=== PATIENT | male | born 1950 | race Caucasian/White ===

== ENCOUNTER 2021-01-24 06:47 | Day surgery (SDC) | payer OTHER ==
[~2021-01-24] VITALS: Ht 188 cm; Wt 111.2 kg
[~2021-01-24 06:47] MED LIST: ASPI81CH PO; ATOR10 PO; IBUP200 PO; NEBI5 PO; NIAC500ER PO; RXHYDACE PO; VITAMIN D50000 UNIT PO; Vitamin C100 M1
[2021-01-24] MEDS ORDERED: VITAMIN D31000 UNI1 (07:17)
--- NOTE | 2021-01-24 07:52 | NUR ---
01/24/21 0752 Arianna Hoffman PT TOOK SUTAB PREP FOR PROCEDURE.
== END 2021-01-24 09:00 | disposition home or self-care (01) ==
LOC: ORSCSDS 06:47
PROVIDERS: Internal Medicine Gastroenterology
PROC: 0DJD8ZZ Inspection of Lower Intestinal Tract, Via Natural or Artificial Opening Endoscopic (ICD-10-PCS; principal; 2021-01-24 08:00)
DX: Z12.11 Encounter for screening for malignant neoplasm of colon (principal); Z86.010 Personal history of colon polyps; K57.30 Diverticulosis of large intestine without perforation or abscess without bleeding; K64.4 Residual hemorrhoidal skin tags; I10 Essential (primary) hypertension; E78.5 Hyperlipidemia, unspecified; Z79.899 Other long term (current) drug therapy
CPT/HCPCS: J0330; J0461; J2405; J2704; J7120

== ENCOUNTER 2024-03-29 10:05 | Day surgery (SDC) | payer OTHER ==
[~2024-03-29] VITALS: Ht 190.5 cm; Wt 105.3 kg
[~2024-03-29 10:05] MED LIST changes: +Lactated Ringer's 1,000 ML IV ONE; +VITAMIN D31000 UNI1; +propofoL 50 ML IV ONE
[2024-03-29] MEDS ORDERED: TADA10TA (10:35)
[2024-03-29] MEDS ORDERED: ATOR10 (10:35)
[2024-03-29] MEDS ORDERED: Lactated Ringer's 1,000 ML IV ONE ×2 (10:35)
--- NOTE | 2024-03-29 11:42 | NUR ---
03/29/24 1142 Magdalena Haddad PT. DENIES ANY PAIN.
[2024-03-29 13:35] VITALS: BP 111/79
== END 2024-03-29 13:20 | disposition home or self-care (01) ==
LOC: ORSCSDS 10:05
PROVIDERS: Internal Medicine Gastroenterology
PROC: 0DBK8ZX Excision of Ascending Colon, Via Natural or Artificial Opening Endoscopic, Diagnostic (ICD-10-PCS; principal; 2024-03-29 11:15)
DX: Z12.11 Encounter for screening for malignant neoplasm of colon (principal); Z86.010 Personal history of colon polyps; D12.2 Benign neoplasm of ascending colon; K57.30 Diverticulosis of large intestine without perforation or abscess without bleeding; K64.4 Residual hemorrhoidal skin tags; E78.5 Hyperlipidemia, unspecified; I10 Essential (primary) hypertension; E55.9 Vitamin D deficiency, unspecified; Z79.899 Other long term (current) drug therapy
CPT/HCPCS: 88305; J2704; J7120

== ENCOUNTER 2025-07-22 07:36 | Observation (INO) | payer OTHER ==
[~2025-07-22] VITALS: Ht 190.5 cm; Wt 104.3 kg
[~2025-07-22 07:36] MED LIST changes: -Lactated Ringer's 1,000 ML IV ONE; +TADA10TA PO; -propofoL 50 ML IV ONE
[2025-07-22 08:23] LABS: BASOPHILS ABSOLUTE AUTO 0.05 K/mm3 (0.00-0.23); BASOPHILS PERCENT AUTO 1 % (0-2); EOSINOPHILS ABSOLUTE AUTO 0.21 K/mm3 (0.00-0.68); EOSINOPHILS PERCENT AUTO 4 % (0-6); Hematocrit 42.2 % (37.0-53.0); Hemoglobin 14.8 g/dL (13.5-17.5); IMMATURE GRAN ABSOLUTE AUTO 0.01 K/mm3 (0.00-0.10); IMMATURE GRAN PERCENT AUTO 0 % (0-1); LYMPHOCYTES ABSOLUTE AUTO 1.11 K/mm3 (0.84-5.20); LYMPHOCYTES PERCENT AUTO 22 % (21-46); MONOCYTES ABSOLUTE AUTO 0.49 K/mm3 (0.16-1.47); MONOCYTES PERCENT AUTO 10 % (4-13); Mean Corpuscular HGB Conc 35.1 g/dL (31.5-36.5); Mean Corpuscular Volume 91 fL (80-100); NEUTROPHILS ABSOLUTE AUTO 3.13 K/mm3 (1.96-9.15); NEUTROPHILS PERCENT AUTO 63 % (41-73); NRBC ABSOLUTE 0.00 K/mm3 (0.00-0.02); NRBC Auto 0.0 /100 WBC (0.0-0.2); Platelet Count 190 K/mm3 (150-400); RDW Coefficient Variation 11.9 % (11.7-14.2); RDW Standard Deviation 39.2 fL (35.1-46.3)
[2025-07-22 08:39] LABS: Alanine Aminotransfer (ALT/SGP 27.0 U/L (12-78); Albumin, Blood 3.5 g/dL (3.4-5.0); Albumin/Globulin Ratio 1.3 (0.8-1.8); Anion Gap 9.0 mmol/L (3-11); Aspartate Aminotrans (AST/SGOT 18.0 U/L (12-37); Bilirubin, Total 1.8 mg/dL (0.1-1.0); Blood Urea Nitrogen 20.0 mg/dL (8-24); CO2, Blood 25.0 mmol/L (21-32); Calcium, Blood 8.4 mg/dL (8.5-10.1); Chloride, Blood 109.0 mmol/L (98-108); Creatinine, Blood 1.11 mg/dL (0.60-1.20); Globulin, Blood 2.6 g/dL (2.2-4.0); Glucose, Blood 192.0 mg/dL (70-99); Magnesium, Blood 2.1 mg/dL (1.6-2.4); Potassium, Blood 4.2 mmol/L (3.5-5.5); Sodium, Blood 139.0 mmol/L (136-145); Total Protein, Blood 6.1 g/dL (6.4-8.2)
[2025-07-22] MEDS ORDERED: NS 1,000 ML IV SCH ×2 (09:15→11:30)
[2025-07-22] MEDS ORDERED: FLU VACC TS2025(65UP)/MF59C/PF 45 MCG/0.5 ML SYRINGE IM SCH (12:45)
[2025-07-22] MEDS ORDERED: ERGO50000 PO (14:18)
[2025-07-22] MEDS ORDERED: IBUP600 PO (14:19)
[2025-07-22] MEDS ORDERED: L-LYSINE500 MG PO (14:21)
[2025-07-22 15:06] VITALS: BP 155/108
--- NOTE | 2025-07-22 18:20 | NUR ---
PT ARRIVED IN THE ROOM 1415 FOR ERD PT ABLE TO TRANSFER KAYLI FERREIRA TO PCU BED WITH NO ISSUES. VITALS HRR AFIB 80'S, SBP 140-150, SATS ABOVE 95% ON RA, AFEBRILE. PT AMBULATING TO THE BATHROOM SBA. DR VICK CAME IN AND DISCUSS PLAN WITH THE PT IN THE ROOM AND AT THE BEDSIDE. NEW MEDS STARTED. CBG CHECKS ORDERED. PT DENIES CHEST PAIN/PRESSURE/PALPITATIONS AT THIS TIME. ORTHOSTATIC BP NEGATIVE. ECHO RESULT CAME BACK WITH NO SIGNIFICANT ABNORMALITY. PT AND MADE AWARE. NO OTHER ISSUES AT THIS TIME. PT HAS BEEN CALLING APPROPRIATELY. WILL REPORT TO ONCOMING SHIFT
[2025-07-22] MEDS ORDERED: Insulin Human Lispro 100 Units/ML 3ML Syringe SC SCH (21:00)
[2025-07-22 21:14] VITALS: BP 127/84
[2025-07-22 23:34] VITALS: BP 111/58
[2025-07-22] MEDS ORDERED: ATORVASTATIN CA20 MG PO (23:51)
[2025-07-23 04:25] VITALS: BP 107/71
--- NOTE | 2025-07-23 04:50 | NUR ---
ASSUMED CARE OF PT AT 1900. PT IS ALERT AND ORIENTED X4, FOLLOWS COMMANDS AND USES THE CALL LIGHT APPROPRIATELY. PT AMBULATES TO THE RESTROOM STANDBY ASSIST. BED ALARM ACTIVATED FOR SAFETY. PT HAS BEEN BRADYCARDIC WHILE SLEEPING, WITH HR MOSTLY IN THE 50S-60S AND ONE BRIEF EPISODE OF HR DROPPING INTO THE 30S FOR A FEW SECONDS. PT REMAINED ASYMPTOMATIC. ALL OTHER VSS. NO COMPLAINTS OF DIZZINESS THROUGHOUT THE NIGHT. BED IN LOWEST POSITION, CALL LIGHT WITHIN REACH.
[2025-07-23 07:51] VITALS: BP 143/99
[2025-07-23] MEDS ORDERED: LORazepam 2 MG/ML 1ML Injection IV ONE (08:50)
[2025-07-23] MEDS ORDERED: Enoxaparin 40 MG/0.4 ML SYR SC SCH (09:00)
[2025-07-23 12:28] VITALS: BP 127/90
[2025-07-23 16:09] VITALS: BP 131/71
--- NOTE | 2025-07-23 17:49 | NUR ---
PT SUMMARY; NO ACUTE CHANGE FOR THE SHIFT, DENIES CHEST PAIN/PRESSURE. AMBULATING INDEPENDENTLY IN THE ROOM, IN THE ROOM WELL MOST OF THE SHIFT. MRI DONE NO SIGNIFICANT ABNORMALITY ON RESULT, FIRST PORTION OF STRESS TEST DONE AROUND LUNCH TIME SECOND PORTION TO BE DONE IN THE MORNING. VITALS HAS BEEN STABLE. DR ARTHUR AND DR VICK ROUNDED THIS MORNING MEDICATION CHANGES ON EMAR. FOR POSSIBLE DC IN AM IF STRESS TEST IS NORMAL. NO OTHER ISSUES ENCOUNTERED WILL REPORT TO ONCOMING SHIFT
[2025-07-23 20:07] VITALS: BP 130/81
[2025-07-23 23:37] VITALS: BP 113/77
[2025-07-24 03:34] VITALS: BP 134/90
--- NOTE | 2025-07-24 03:58 | NUR ---
ASSUMED CARE OF PT AT 1900. PT AWAKE,ALERT AND ORIENTED X 4, FOLLOWS COMMANDS AND USES CALL LIGHT APPROPRIATELY. PT REMAINS BRADYCARDIC 50S-60S WHILE SLEEPING.ALL OTHER VSS. PT HAS BEEN NPO SINCE MIDNIGHT FOR SECOND HALF OF STRESS TEST TO BE COMPLETED TODAY. BED IN LOWEST POSITION AND CALL LIGHT WITHIN REACH.
[2025-07-24 08:10] VITALS: BP 137/96
[2025-07-24 10:59] VITALS: BP 124/96
[2025-07-24] MEDS ORDERED: ELIQUIS5 M2 PO (12:25)
[2025-07-24] MEDS ORDERED: CARV3.125 PO (12:25)
[2025-07-24] MEDS ORDERED: LOSA25 PO (12:25)
[2025-07-28] MEDS ORDERED: Ergocalciferol 50000 Intn'l Units PO SCH (09:00)
== END 2025-07-24 13:57 | disposition home or self-care (01) ==
LOC: ER 07:36 → PCU 07:37
PROVIDERS: Student in an Organized Health Care Education/Training Program; ADMIT Internal Medicine
DX: R55 Syncope and collapse (principal); I48.91 Unspecified atrial fibrillation; I11.0 Hypertensive heart disease with heart failure; I50.30 Unspecified diastolic (congestive) heart failure; R94.31 Abnormal electrocardiogram [ECG] [EKG]; R73.9 Hyperglycemia, unspecified; E78.00 Pure hypercholesterolemia, unspecified; F10.21 Alcohol dependence, in remission; Z79.899 Other long term (current) drug therapy; Z88.5 Allergy status to narcotic agent; Z88.8 Allergy status to other drugs, medicaments and biological substances
CPT/HCPCS: 36415; 70450; 70551; 71046; 72125; 78452; 80053; 82607; 82746; 82947; 83036; 83735; 84443; 84484; 85025; 90471; 90714; 93005; 93010; 93017; 93246; 93306; 93356; 96360; 96361; 96374; 99285-25; A9270; A9500; G0378; J0706; J2060; J2785; J7030